=== PATIENT | male | born 1995 | race Caucasian/White ===

== ENCOUNTER 2018-03-09 12:11 | Emergency (ER) | payer OTHER ==
[~2018-03-09] VITALS: Ht 182.9 cm; Wt 85.5 kg
[2018-03-09 12:15] VITALS: BP 134/83
[2018-03-09] MEDS ORDERED: IBUPROFEN 800 MG TABLET ONE (12:27)
[2018-03-09] MEDS ORDERED: ACETAMINOPHEN 500 MG TABLET ONE (12:27)
[2018-03-09] MEDS ORDERED: ACETAMINOPHEN 500 MG TABLET PO ONE (12:30)
[2018-03-09] MEDS ORDERED: IBUPROFEN 200 MG TABLET PO ONE (12:30)
[2018-03-09] MEDS ORDERED: DEXAMETHASONE 4 MG/ML, 1ML PO ONE (13:00)
[2018-03-09] MEDS ORDERED: DEXAMETHASONE 4 MG TABLET ONE (13:20)
== END 2018-03-09 14:01 | disposition home or self-care (01) ==
LOC: ED 13:50
DX: J02.0 Streptococcal pharyngitis (principal)
CPT/HCPCS: 87081; 87880; 99284; J1100; 87147